=== PATIENT | female | born 1975 | race Caucasian/White ===

== ENCOUNTER 2018-12-18 05:28 | Inpatient (IN) | payer OTHER ==
[~2018-12-18] VITALS: Ht 144.8 cm; Wt 90.0 kg
[~2018-12-18 05:28] MED LIST: DOCU-144 PO; FER325 PO
[2018-12-18 11:47] VITALS: Ht 144.8 cm; Wt 90.0 kg
[2018-12-18 11:55] VITALS: BP 126/58; PULSE 76; RESP 19
[2018-12-18 14:45] VITALS: BP 101/53; PULSE 72; RESP 18
[2018-12-18] MEDS ORDERED: ONDANSETRON 4 MG INJ IV PRN (15:00)
[2018-12-18] MEDS ORDERED: ACETAMINOPHEN 325 MG TAB PO PRN (15:00)
[2018-12-18] MEDS ORDERED: ZOLPIDEM 5 MG TAB PO PRN (15:00)
[2018-12-18] MEDS ORDERED: NACL 0.9% 3 ML SYG IV SCH (15:00)
--- NOTE | 2018-12-18 15:08 | QN ---
Documentation Comment PT SEEN AND ADAM ENGLISH MD Dec 18, 2018 15:08
--- NOTE | 2018-12-18 15:19 | QN ---
Documentation Comment PT SEEN AND EXAMINED ADAM BULLARD MD Dec 18, 2018 15:19
[2018-12-18] MEDS ORDERED: CLOTRIMAZOLE 1% 45 GM VAG CR VAG ONE (16:00)
[2018-12-18] MEDS: CEFTRIAXONE 1 GM/50 ML (PMX) 50 ML IVPB SCH (16:05)
[2018-12-18] MEDS: SOD CHLORIDE 0.9% 1,000 ML IV SCH (16:06)
[2018-12-18 20:00] VITALS: BP 122/60; PULSE 81; RESP 18
--- NOTE | 2018-12-18 20:41 | HP ---
DATE OF ADMISSION: 12/18/2018 REASON FOR ADMISSION: Transferred from [facility] secondary to anemia and UTI. HISTORY OF PRESENT ILLNESS: This is a 43-year-old female with a past medical history of 2 months of right flank pain and dysuria. She was initially seen in an outside clinic on 12/13 and she was noted to have microcytic anemia, hemoglobin of 6.4. Additionally, diagnosed with pyelonephritis. Patient was prescribed Bactrim and told to follow up at [facility] for anemia, stated for the last 2 months she hawley s had right flank pain, suprapubic pain and dysuria. Denies hematuria. Last menstrual period was 1 month ago, heavy, which is her normal. Since starting Bactrim she has reported somewhat feeling impr ani. She is also having some dyspnea, both at rest and exertion, unable to walk one flight of stair s. Denied any chest pain or chest tightness, palpitations, presyncope. Patient denied any hematemes is, any melena, any bright red blood per rectum. 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 Currently, the patient also states that she is having bilateral flank pain. When she arrived to the [facility] on 12/17 had a temperature 37.4, heart rate 99, blood pressure 117/59. Neela ent had hemoglobin of 6.6. Patient was given 2 units of blood. The patient had a bedside ultrasound , showed no evidence of hydronephrosis or renal stones, and chest x-ray was negative for acute cardio pulmonary process, and patient was continued on Bactrim and is transferred due to insurance reasons. PAST MEDICAL HISTORY: None. ALLERGIES: NONE. PAST SURGICAL HISTORY: . The patient also had left knee surgery. SOCIAL HISTORY: Denies any history of smoking, alcohol or any drug use. MEDICATIONS TAKING AT HOME: 1. Bactrim. 2. Flexeril. FAMILY HISTORY: Noncontributory. REVIEW OF SYSTEMS: The patient complained of bilateral flank pain on and off intermittently for the past 1 month, suprapubic pain, sometimes dysuria, sometimes a vaginal discharge. She used to have so me exertional shortness of breath. Denies any chest pain, any abdominal pain. Denies any hematuria. Denies any hematemesis, any melena. The patient has been having heavy periods and was told that sh moira had fibroids. PHYSICAL EXAMINATION: VITAL SIGNS: Currently blood pressure is 126/58, afebrile, heart rate 76, respirations 19, saturatin g 97%. GENERAL: The patient is awake, alert, oriented, does not appear to be in any acute distress. HEENT: Pupils equal, round, reactive to light. NECK: Supple, no JVD. HEART: Regular rate and rhythm. LUNGS: Clear to auscultate bilaterally. ABDOMEN: Soft, nontender, nondistended, some suprapubic tenderness present. The patient has right C VA tenderness. EXTREMITIES: No clubbing, cyanosis, or edema. The patient has a left knee surgery scar. DIAGNOSTIC DATA: From the other hospital shows BNP of less than 10. test was negative. L actate of 1.3, lipase of 31. Iron low, 15, TIBC 503. Albumin 3.4, AST 49, ALT 119. UA had showed s mall leukocytes, 4 WBCs. White count was 15, hemoglobin was 6.6. ASSESSMENT AND PLAN: This is a 43-year-old female, presented with: 1. Severe anemia. Could be secondary to menstrual bleeding. The patient has history of fibroids. Patient denies any hematuria, any hematemesis and melena. 2. Bilateral flank pain, more on the right. Need to rule out pyelonephritis versus kidney stone. 3. History of urinary tract infection. 4. Obesity. 5. Dyspnea, likely secondary to anemia. PLAN: At this period of time, the patient is admitted to med/surg. The patient has already received 2 units of blood. We will repeat the CBC. We will check for iron panel, B12, folic acid, reticuloc yte count. We will also get a CT of the abdomen and pelvis, pain control, UA, urine culture. The pa tient will be on IV antibiotics. Rest of the treatment will depend on the patient's hospitalization course. Dictated By: ADAM LARA/PHILIPPE Conf#: [id number] DID#: [id number]
[2018-12-19 02:00] VITALS: BP 116/84; PULSE 71; RESP 17
[2018-12-19] MEDS: SOD CHLORIDE 0.9% 1,000 ML IV SCH (06:30)
[2018-12-19 08:22] VITALS: BP 114/56; PULSE 68; RESP 14
[2018-12-19 13:28] VITALS: BP 123/61; PULSE 74; RESP 14
--- NOTE | 2018-12-19 13:48 | CONS ---
Assessment/Plan Assessment/Plan Hospital Course (Demo Recall) 43-year-old female has been complaining of dysuria for the past 2 months and she went to [facility] found to be severely anemic was given blood transfusions and she was transferred to [facility] because of her insurance. The patient underwent a CT scan of the abdomen and pelvis and that showed: 1. Nonobstructive bilateral nephrolithiasis without hydronephrosis or identifiable ureterolithiasis. 2. Fibroid uterus containing some endometrial fluid. This can be better evaluated with pelvic ultrasound if clinically warranted. 3. Cholelithiasis versus sludge in the mildly distended gallbladder without lilo evidence of acute cholecystitis. This can be better evaluated with right upper quadrant ultrasound if clinically warranted. 4. Hepatosteatosis. 5. Mild left colonic diverticulosis without evidence of acute diverticulitis. The bowel is unobstructed without evidence of perforation or abscess, and the appendix appears normal. 6. Evidence of chronic granulomatous disease. Patient states that she does have dysuria, nocturia x1, there is no nausea or vomiting and no gross hematuria. During the day she voids every 2 hours and she has no urgency or urgency incontinence. The stones that she has in her kidneys are not obstructing and therefore would not be causing her pain. However whenever a stone comes down from her kidney into the ureter may be causing her the pain and she passes it and then the pain goes away and during that time she may have symptoms similar to urinary tract infection and was treated for supposedly UTI We will send urine for culture and sensitivity by straight cath and strain her urine for stones. Consultation Date/Type/Reason Admit Date/Time Dec 18, 2018 at 11:01 Date of Consultation: Dec 19, 2018 Type of Consult Urology Reason for Consultation Bilateral kidney stones, dysuria for the past 2 months. Requesting Provider: ADAM BULLARD MD Date/Time of Note DATE: 12/19/18 TIME: 13:33 Hx of Present Illness 43-year-old female has been complaining of dysuria for the past 2 months and she went to [facility] found to be severely anemic was given blood transfusions and she was transferred to [facility] because of her insurance. The patient underwent a CT scan of the abdomen and pelvis and that showed: 1. Nonobstructive bilateral nephrolithiasis without hydronephrosis or identifiable ureterolithiasis. 2. Fibroid uterus containing some endometrial fluid. This can be better evaluated with pelvic ultrasound if clinically warranted. 3. Cholelithiasis versus sludge in the mildly distended gallbladder without lilo evidence of acute cholecystitis. This can be better evaluated with right upper quadrant ultrasound if clinically warranted. 4. Hepatosteatosis. 5. Mild left colonic diverticulosis without evidence of acute diverticulitis. The bowel is unobstructed without evidence of perforation or abscess, and the appendix appears normal. 6. Evidence of chronic granulomatous disease. Patient states that she does have dysuria, nocturia x1, there is no nausea or vomiting and no gross hematuria. During the day she voids every 2 hours and she has no urgency or urgency incontinence. Constitutional: no complaints Eyes: no complaints ENT: no complaints Respiratory: no complaints; No shortness of breath, No wheezing Cardiovascular: no complaints Gastrointestinal: No nausea, No vomiting Genitourinary: dysuria, other (Vaginal itching, last menstrual periods was November 20, 2018) Musculoskeletal: no complaints Skin: no complaints Neurologic: no complaints Endocrine: no complaints Past Medical History Medical History: high cholesterol Medications Current Medications IV Flush (NS 3 ml) 3 ml PER PROTOCOL IV ; Start 12/18/18 at 15:00 Ondansetron HCl (Zofran Inj) 4 mg Q6H PRN IV NAUSEA/VOMITING; Start 12/18/18 at 15:00 Acetaminophen (Tylenol Tab) 650 mg Q6H PRN PO .PAIN 1-3 OR TEMP; Start 12/18/18 at 15:00 Zolpidem Tartrate (Ambien) 5 mg QHS PRN PO .INSOMNIA; Start 12/18/18 at 15:00 Ceftriaxone Sodium 50 ml @ 100 mls/hr Q24H IVPB Last administered on 12/18/18at 16:05; Admin Dose 100 MLS/HR; Start 12/18/18 at 15:30 Sodium Chloride 1,000 ml @ 70 mls/hr [id number] IV Last administered on 12/19/18at 06:30; Admin Dose 70 MLS/HR; Start 12/18/18 at 15:30 Metronidazole 100 ml @ 100 mls/hr Q8 IVPB ; Start 12/19/18 at 14:00 Allergies: Coded Allergies: No Known Allergies (Verified Allergy, Unknown, 12/18/18) Past Surgical History Past Surgical Hx: other ( x1 and fracture left leg) Social History Alcohol Use: none Smoking Status: Never smoker Drug Use: none Other Social History She is a 3 para 1, 2 miscarriages and 1 Exam/Review of Systems Exam Vitals Vital Signs Date Temp Pulse Resp B/P (MAP) Pulse Ox O2 O2 Flow FiO2 Time Delivery Rate 12/19/18 98.3 68 14 114/56 94 Room Air 08:22 (75) Intake and Output 12/18/18 12/18/18 12/19/18 1515:00 23:00 07:00 IntakeIntake Total 690 ml 1490 ml BalanceBalance 690 ml 1490 ml Constitutional: alert, oriented Head: normocephalic Eyes: nl conjunctiva ENMT: nl external ears & nose Neck: supple Respiratory: normal air movement; No wheezing Cardiovascular: regular rate and rhythm Gastrointestinal: soft Genitourinary - Female: other (Pelvic exam: No pain. She has whitish discharge); No CVA tenderness Musculoskeletal: nl extremities to inspection Extremities: No calf tenderness Neurological: nl mental status Results Result Diagram: 12/19/18 0507 12/19/18 0504 Results 24hrs Laboratory Tests Test 12/18/18 15:24 12/18/18 15:55 12/19/18 05:04 12/19/18 05:07 White Blood Count 13.4 H 13.2 H Red Blood Count 4.78 4.48 Hemoglobin 9.1 L 8.5 L Hematocrit 32.0 L 30.0 L Mean Corpuscular 66.9 L 67.0 L Volume Mean Corpuscular 19.0 L 19.0 L Hemoglobin Mean Corpuscular 28.4 L 28.3 L Hemoglobin Concen t Red Cell 25.1 H 26.0 H Distribution Width Platelet Count 366 339 Mean Platelet 9.9 9.9 Volume Immature 1.100 H 0.800 H Granulocytes % Neutrophils % 74.7 74.5 Lymphocytes % 15.9 14.7 L Monocytes % 6.7 7.8 Eosinophils % 1.0 1.7 Basophils % 0.6 0.5 Nucleated Red 0.4 H 0.2 H Blood Cells % Immature 0.150 H 0.110 H Granulocytes # Neutrophils # 10.0 H 9.8 H Lymphocytes # 2.1 1.9 Monocytes # 0.9 1.0 H Eosinophils # 0.1 0.2 Basophils # 0.1 0.1 Nucleated Red 0.1 H 0.0 Blood Cells # Urine Color YELLOW Urine Clarity SLIGHTLY CLOUDY A Urine pH 5.0 Urine Specific 1.013 [place] Urine Ketones TRACE A Urine Nitrite NEGATIVE Urine Bilirubin NEGATIVE Urine NEGATIVE Urobilinogen Urine Leukocyte 2+ H Esterase Urine Microscopic 12 H RBC Urine Microscopic 20 H WBC Urine Squamous MODERATE Epithelial Cells Urine Bacteria FEW A Urine Yeast FEW A (Budding) Urine Hemoglobin NEGATIVE Urine Glucose NEGATIVE Urine Total NEGATIVE Protein Urine NEGATIVE Test Sodium Level 138 Potassium Level 4.0 Chloride Level 106 Carbon Dioxide 24 Level Anion Gap 8 Blood Urea 10 Nitrogen Creatinine 0.75 Est Glomerular > 60 Filtrat Rate mL/min Glucose Level 95 Calcium Level 8.9 Total Bilirubin 0.5 Direct Bilirubin 0.00 Indirect 0.5 Bilirubin Aspartate Amino 59 H Transf (AST/SGOT) Alanine 110 H Aminotransferase (ALT/SGPT) Alkaline 100 Phosphatase Total Protein 7.4 Albumin 3.6 Globulin 3.80 H Albumin/Globulin 0.[address] scan of the abdomen and pelvis: 1. Nonobstructive bilateral nephrolithiasis without hydronephrosis or identifiable ureterolithiasis. 2. Fibroid uterus containing some endometrial fluid. This can be better evaluated with pelvic ultrasound if clinically warranted. 3. Cholelithiasis versus sludge in the mildly distended gallbladder without lilo evidence of acute cholecystitis. This can be better evaluated with right upper quadrant ultrasound if clinically warranted. 4. Hepatosteatosis. 5. Mild left colonic diverticulosis without evidence of acute diverticulitis. The bowel is unobstructed without evidence of perforation or abscess, and the appendix appears normal. 6. Evidence of chronic granulomatous disease. Medications Medication Current Medications IV Flush (NS 3 ml) 3 ml PER PROTOCOL IV ; Start 12/18/18 at 15:00 Ondansetron HCl (Zofran Inj) 4 mg Q6H PRN IV NAUSEA/VOMITING; Start 12/18/18 at 15:00 Acetaminophen (Tylenol Tab) 650 mg Q6H PRN PO .PAIN 1-3 OR TEMP; Start 12/18/18 at 15:00 Zolpidem Tartrate (Ambien) 5 mg QHS PRN PO .INSOMNIA; Start 12/18/18 at 15:00 Ceftriaxone Sodium 50 ml @ 100 mls/hr Q24H IVPB Last administered on 12/18/18at 16:05; Admin Dose 100 MLS/HR; Start 12/18/18 at 15:30 Sodium Chloride 1,000 ml @ 70 mls/hr [id number] IV Last administered on 12/19/18at 06:30; Admin Dose 70 MLS/HR; Start 12/18/18 at 15:30 Metronidazole 100 ml @ 100 mls/hr Q8 IVPB ; Start 12/19/18 at 14:00 ROCKY BALLARD MD Dec 19, 2018 13:43
--- NOTE | 2018-12-19 14:04 | PN ---
Date/Time of Note Date/Time of Note DATE: 12/19/18 TIME: 14:04 Assessment/Plan VTE Prophylaxis Risk score (from Ns)>0 risk: 1 SCD applied (from Ns): No SCD contraindicated: low risk/ambulating Pharmacological prophylaxis: NA/contraindicated Pharm contraindication: low risk/ambulating Lines/Catheters [facility] Peripheral IV Urinary Cath still in place: No Assessment/Plan Assessment/Plan ASSESSMENT AND PLAN: This is a 43-year-old female, presented with: 1. Severe anemia. Could be secondary to menstrual bleeding. The patient has history of fibroids. Patient denies any hematuria, any hematemesis and melena. 2. Bilateral flank pain, more on the right. Need to rule out pyelonephritis versus kidney stone. now hs 6mm stones on ct scan 3. History of urinary tract infection. 4. Obesity. 5. Dyspnea, likely secondary to anemia. 6 Possible gall stones plan - Abd US to r/o chloecystitis - Dr Olson consult - iv rocephin/add flagyll for possible cholecystitis - Fe panel - pain control Result Diagram: 12/19/18 0507 12/19/18 0504 Results 24hrs Laboratory Tests Test 12/18/18 15:24 12/18/18 15:55 12/19/18 05:04 12/19/18 05:07 White Blood Count 13.4 H 13.2 H Red Blood Count 4.78 4.48 Hemoglobin 9.1 L 8.5 L Hematocrit 32.0 L 30.0 L Mean Corpuscular 66.9 L 67.0 L Volume Mean Corpuscular 19.0 L 19.0 L Hemoglobin Mean Corpuscular 28.4 L 28.3 L Hemoglobin Concen t Red Cell 25.1 H 26.0 H Distribution Width Platelet Count 366 339 Mean Platelet 9.9 9.9 Volume Immature 1.100 H 0.800 H Granulocytes % Neutrophils % 74.7 74.5 Lymphocytes % 15.9 14.7 L Monocytes % 6.7 7.8 Eosinophils % 1.0 1.7 Basophils % 0.6 0.5 Nucleated Red 0.4 H 0.2 H Blood Cells % Immature 0.150 H 0.110 H Granulocytes # Neutrophils # 10.0 H 9.8 H Lymphocytes # 2.1 1.9 Monocytes # 0.9 1.0 H Eosinophils # 0.1 0.2 Basophils # 0.1 0.1 Nucleated Red 0.1 H 0.0 Blood Cells # Urine Color YELLOW Urine Clarity SLIGHTLY CLOUDY A Urine pH 5.0 Urine Specific 1.013 [place] Urine Ketones TRACE A Urine Nitrite NEGATIVE Urine Bilirubin NEGATIVE Urine NEGATIVE Urobilinogen Urine Leukocyte 2+ H Esterase Urine Microscopic 12 H RBC Urine Microscopic 20 H WBC Urine Squamous MODERATE Epithelial Cells Urine Bacteria FEW A Urine Yeast FEW A (Budding) Urine Hemoglobin NEGATIVE Urine Glucose NEGATIVE Urine Total NEGATIVE Protein Urine NEGATIVE Test Sodium Level 138 Potassium Level 4.0 Chloride Level 106 Carbon Dioxide 24 Level Anion Gap 8 Blood Urea 10 Nitrogen Creatinine 0.75 Est Glomerular > 60 Filtrat Rate mL/min Glucose Level 95 Calcium Level 8.9 Total Bilirubin 0.5 Direct Bilirubin 0.00 Indirect 0.5 Bilirubin Aspartate Amino 59 H Transf (AST/SGOT) Alanine 110 H Aminotransferase (ALT/SGPT) Alkaline 100 Phosphatase Total Protein 7.4 Albumin 3.6 Globulin 3.80 H Albumin/Globulin 0.94 Ratio Subjective 24 Hr Interval Summary Free Text/Dictation U/S multiple stones ? cholecystitis Exam/Review of Systems Exam Vitals Vital Signs Date Temp Pulse Resp B/P (MAP) Pulse Ox O2 O2 Flow FiO2 Time Delivery Rate 12/19/18 97.7 74 14 123/61 98 Room Air 13:28 (81) Intake and Output 12/18/18 12/18/18 12/19/18 1515:00 23:00 07:00 IntakeIntake Total 690 ml 1490 ml BalanceBalance 690 ml 1490 ml Exam GENERAL: The patient is awake, alert, oriented, does not appear to be in any ac mariela distress. HEENT: Pupils equal, round, reactive to light. NECK: Supple, no JVD. HEART: Regular rate and rhythm. LUNGS: Clear to auscultate bilaterally. ABDOMEN: Soft, nontender, nondistended, some suprapubic tenderness present. The patient has right CVA tenderness. EXTREMITIES: No clubbing, cyanosis, or edema. The patient has a left knee surgery scar Results Results 24hrs Laboratory Tests Test 12/18/18 15:24 12/18/18 15:55 12/19/18 05:04 12/19/18 05:07 White Blood Count 13.4 H 13.2 H Red Blood Count 4.78 4.48 Hemoglobin 9.1 L 8.5 L Hematocrit 32.0 L 30.0 L Mean Corpuscular 66.9 L 67.0 L Volume Mean Corpuscular 19.0 L 19.0 L Hemoglobin Mean Corpuscular 28.4 L 28.3 L Hemoglobin Concen t Red Cell 25.1 H 26.0 H Distribution Width Platelet Count 366 339 Mean Platelet 9.9 9.9 Volume Immature 1.100 H 0.800 H Granulocytes % Neutrophils % 74.7 74.5 Lymphocytes % 15.9 14.7 L Monocytes % 6.7 7.8 Eosinophils % 1.0 1.7 Basophils % 0.6 0.5 Nucleated Red 0.4 H 0.2 H Blood Cells % Immature 0.150 H 0.110 H Granulocytes # Neutrophils # 10.0 H 9.8 H Lymphocytes # 2.1 1.9 Monocytes # 0.9 1.0 H Eosinophils # 0.1 0.2 Basophils # 0.1 0.1 Nucleated Red 0.1 H 0.0 Blood Cells # Urine Color YELLOW Urine Clarity SLIGHTLY CLOUDY A Urine pH 5.0 Urine Specific 1.013 [place] Urine Ketones TRACE A Urine Nitrite NEGATIVE Urine Bilirubin NEGATIVE Urine NEGATIVE Urobilinogen Urine Leukocyte 2+ H Esterase Urine Microscopic 12 H RBC Urine Microscopic 20 H WBC Urine Squamous MODERATE Epithelial Cells Urine Bacteria FEW A Urine Yeast FEW A (Budding) Urine Hemoglobin NEGATIVE Urine Glucose NEGATIVE Urine Total NEGATIVE Protein Urine NEGATIVE Test Sodium Level 138 Potassium Level 4.0 Chloride Level 106 Carbon Dioxide 24 Level Anion Gap 8 Blood Urea 10 Nitrogen Creatinine 0.75 Est Glomerular > 60 Filtrat Rate mL/min Glucose Level 95 Calcium Level 8.9 Total Bilirubin 0.5 Direct Bilirubin 0.00 Indirect 0.5 Bilirubin Aspartate Amino 59 H Transf (AST/SGOT) Alanine 110 H Aminotransferase (ALT/SGPT) Alkaline 100 Phosphatase Total Protein 7.4 Albumin 3.6 Globulin 3.80 H Albumin/Globulin 0.94 Ratio Medications Medication Current Medications IV Flush (NS 3 ml) 3 ml PER PROTOCOL IV ; Start 12/18/18 at 15:00 Ondansetron HCl (Zofran Inj) 4 mg Q6H PRN IV NAUSEA/VOMITING; Start 12/18/18 at 15:00 Acetaminophen (Tylenol Tab) 650 mg Q6H PRN PO .PAIN 1-3 OR TEMP; Start 12/18/18 at 15:00 Zolpidem Tartrate (Ambien) 5 mg QHS PRN PO .INSOMNIA; Start 12/18/18 at 15:00 Ceftriaxone Sodium 50 ml @ 100 mls/hr Q24H IVPB Last administered on 12/18/18at 16:05; Admin Dose 100 MLS/HR; Start 12/18/18 at 15:30 Sodium Chloride 1,000 ml @ 70 mls/hr [id number] IV Last administered on 12/19/18at 06:30; Admin Dose 70 MLS/HR; Start 12/18/18 at 15:30 Metronidazole 100 ml @ 100 mls/hr Q8 IVPB ; Start 12/19/18 at 14:00 ADAM BULLARD MD Dec 19, 2018 14:04
[2018-12-19] MEDS: metroNIDAZOLE 500 MG/NS (PMX) 100 ML IVPB SCH ×2 (14:24→21:52)
[2018-12-19] MEDS: CEFTRIAXONE 1 GM/50 ML (PMX) 50 ML IVPB SCH (15:54)
[2018-12-19] MEDS ORDERED: POLYETHYLENE GLYCOL 17 GM PACKET PO PRN (19:30)
[2018-12-19] MEDS ORDERED: DOCUSATE SODIUM 100 MG CAP PO PRN (19:30)
[2018-12-19 20:00] VITALS: BP 116/53; PULSE 82; RESP 18
[2018-12-20 02:00] VITALS: BP 97/49; PULSE 85; RESP 18
[2018-12-20] MEDS: SOD CHLORIDE 0.9% 1,000 ML IV SCH ×3 (02:33→21:06)
[2018-12-20] MEDS: metroNIDAZOLE 500 MG/NS (PMX) 100 ML IVPB SCH ×2 (05:21→14:31)
[2018-12-20 08:00] VITALS: BP 99/53; PULSE 71; RESP 16
[2018-12-20] MEDS ORDERED: CLOTRIMAZOLE 1% 45 GM VAG CR VAG ONE (13:30)
[2018-12-20 14:00] VITALS: BP 107/55; PULSE 72; RESP 16
--- NOTE | 2018-12-20 14:40 | PN ---
Date/Time of Note Date/Time of Note DATE: 12/20/18 TIME: 14:38 Assessment/Plan VTE Prophylaxis Risk score (from Ns)>0 risk: 2 SCD applied (from [facility] [place] SCD contraindicated: low risk/ambulating Pharmacological prophylaxis: NA/contraindicated Pharm contraindication: low risk/ambulating Lines/Catheters IV Catheter Type (from [facility]): Peripheral IV Urinary Cath still in place: No Assessment/Plan Assessment/Plan ASSESSMENT AND PLAN: This is a 43-year-old female, presented with: 1. Severe anemia. Could be secondary to menstrual bleeding. The patient has history of fibroids. Patient denies any hematuria, any hematemesis and melena. The microcytic 2. Bilateral flank pain, more on the right. Need to rule out pyelonephritis versus kidney stone. now hs 6mm stones on ct scan 3. History of urinary tract infection. 4. Obesity. 5. Dyspnea, likely secondary to anemia. 6 Possible gall stones plan -Check for iron panel B12 folic acid LDH haptoglobin -IV iron -Clotrim oxazole + urine culture positive for Anh -Treated with Rocephin. REBEKAH Flagyl - pain control Result Diagram: 12/20/18 0551 12/20/18 0552 Results 24hrs Laboratory Tests Test 12/19/18 17:15 12/20/18 05:51 12/20/18 05:52 Urine Color YELLOW Urine Clarity CLEAR Urine pH 5.0 Urine Specific [place] 1.014 Urine Ketones NEGATIVE Urine Nitrite NEGATIVE Urine Bilirubin NEGATIVE Urine Urobilinogen 1+ H Urine Leukocyte Esterase NEGATIVE Urine Hemoglobin NEGATIVE Urine Glucose NEGATIVE Urine Total Protein NEGATIVE White Blood Count 10.9 H Red Blood Count 4.19 L Hemoglobin 8.1 L Hematocrit 29.1 L Mean Corpuscular Volume 69.5 L Mean Corpuscular Hemoglobin 19.3 L Mean Corpuscular Hemoglobin Concent 27.8 L Red Cell Distribution Width 27.2 H Platelet Count 328 Mean Platelet Volume 10.3 Immature Granulocytes % 0.700 H Neutrophils % 73.2 Lymphocytes % 17.6 Monocytes % 6.8 Eosinophils % 1.2 Basophils % 0.5 Nucleated Red Blood Cells % 0.0 Immature Granulocytes # 0.080 H Neutrophils # 8.0 H Lymphocytes # 1.9 Monocytes # 0.7 Eosinophils # 0.1 Basophils # 0.1 Nucleated Red Blood Cells # 0.0 Absolute Reticulocyte Count 0.075 Percent Reticulocyte Count 1.8 H Iron Level 24 L Total Iron Binding Capacity 400 Percent Iron Saturation 6 L Lactate Dehydrogenase 325 Vitamin B12 Level Pending Folate Pending Sodium Level 139 Potassium Level 4.2 Chloride Level 109 Carbon Dioxide Level 23 Anion Gap 7 Blood Urea Nitrogen 12 Creatinine 0.72 Est Glomerular Filtrat Rate mL/min > 60 Glucose Level 106 Calcium Level 8.8 Subjective 24 Hr Interval Summary Free Text/Dictation Overall feels better however still anemic which is microcytic Vagina itching Exam/Review of Systems Exam Vitals Vital Signs Date Temp Pulse Resp B/P (MAP) Pulse Ox O2 O2 Flow FiO2 Time Delivery Rate 12/20/18 98.0 71 16 99/53 (68) 100 08:00 12/19/18 Room Air 13:28 Intake and Output 12/19/18 12/19/18 12/20/18 1515:00 23:00 07:00 IntakeIntake Total 100 ml 150 ml 1580 ml OutputOutput Total 550 ml BalanceBalance 100 ml 150 ml 1030 ml Exam GENERAL: The patient is awake, alert, oriented, does not appear to be in any acute distress. HEENT: Pupils equal, round, reactive to light. NECK: Supple, no JVD. HEART: Regular rate and rhythm. LUNGS: Clear to auscultate bilaterally. ABDOMEN: Soft, nontender, nondistended, some suprapubic tenderness present. The patient has right CVA tenderness.improved EXTREMITIES: No clubbing, cyanosis, or edema. The patient has a left knee surgery sca Results Results 24hrs Laboratory Tests Test 12/19/18 17:15 12/20/18 05:51 12/20/18 05:52 Urine Color YELLOW Urine Clarity CLEAR Urine pH 5.0 Urine Specific [place] 1.014 Urine Ketones NEGATIVE Urine Nitrite NEGATIVE Urine Bilirubin NEGATIVE Urine Urobilinogen 1+ H Urine Leukocyte Esterase NEGATIVE Urine Hemoglobin NEGATIVE Urine Glucose NEGATIVE Urine Total Protein NEGATIVE White Blood Count 10.9 H Red Blood Count 4.19 L Hemoglobin 8.1 L Hematocrit 29.1 L Mean Corpuscular Volume 69.5 L Mean Corpuscular Hemoglobin 19.3 L Mean Corpuscular Hemoglobin Concent 27.8 L Red Cell Distribution Width 27.2 H Platelet Count 328 Mean Platelet Volume 10.3 Immature Granulocytes % 0.700 H Neutrophils % 73.2 Lymphocytes % 17.6 Monocytes % 6.8 Eosinophils % 1.2 Basophils % 0.5 Nucleated Red Blood Cells % 0.0 Immature Granulocytes # 0.080 H Neutrophils # 8.0 H Lymphocytes # 1.9 Monocytes # 0.7 Eosinophils # 0.1 Basophils # 0.1 Nucleated Red Blood Cells # 0.0 Absolute Reticulocyte Count 0.075 Percent Reticulocyte Count 1.8 H Iron Level 24 L Total Iron Binding Capacity 400 Percent Iron Saturation 6 L Lactate Dehydrogenase 325 Vitamin B12 Level Pending Folate Pending Sodium Level 139 Potassium Level 4.2 Chloride Level 109 Carbon Dioxide Level 23 Anion Gap 7 Blood Urea Nitrogen 12 Creatinine 0.72 Est Glomerular Filtrat Rate mL/min > 60 Glucose Level 106 Calcium Level 8.8 Medications Medication Current Medications IV Flush (NS 3 ml) 3 ml PER PROTOCOL IV ; Start 12/18/18 at 15:00 Ondansetron HCl (Zofran Inj) 4 mg Q6H PRN IV NAUSEA/VOMITING; Start 12/18/18 at 15:00 Acetaminophen (Tylenol Tab) 650 mg Q6H PRN PO .PAIN 1-3 OR TEMP; Start 12/18/18 at 15:00 Zolpidem Tartrate (Ambien) 5 mg QHS PRN PO .INSOMNIA; Start 12/18/18 at 15:00 Ceftriaxone Sodium 50 ml @ 100 mls/hr Q24H IVPB Last administered on 12/19/18at 15:54; Admin Dose 100 MLS/HR; Start 12/18/18 at 15:30 Sodium Chloride 1,000 ml @ 70 mls/hr [id number] IV Last administered on 12/20/18at 02:33; Admin Dose 70 MLS/HR; Start 12/18/18 at 15:30 Metronidazole 100 ml @ 100 mls/hr Q8 IVPB Last administered on 12/20/18at 14:31; Admin Dose 100 MLS/HR; Start 12/19/18 at 14:00 Docusate Sodium (Colace) 100 mg BID PRN PO CONSTIPATION; Start 12/19/18 at 19:30 Polyethylene Glycol (Miralax) 17 gm DAILY PRN PO CONSTIPATION; Start 12/19/18 at 19:30 Ferric Sodium Gluconate Complex 125 mg/Sodium Chloride 110 ml @ 110 mls/hr DAILY@1300 IVPB ; Start 12/21/18 at 13:00; Stop 12/25/18 at 13:59 ADAM BULLARD MD Dec 20, 2018 14:40
[2018-12-20] MEDS: CEFTRIAXONE 1 GM/50 ML (PMX) 50 ML IVPB SCH (15:32)
--- NOTE | 2018-12-20 17:14 | CONS ---
Assessment/Plan Assessment/Plan Hospital Course (Demo Recall) 1. Severe anemia. microcytic Could be secondary to menstrual bleeding. The patient has history of fibroids. Patient denies any hematuria, any hematemesis and melena. proceed with w-up , including GI eval AND SICKLE CELL SCREEN 2. Bilateral flank pain, more on the right. Need to rule out pyelonephritis versus kidney stone. now hs 6mm stones on ct scan 3. History of urinary tract infection. 4. Obesity. 5. Dyspnea, likely secondary to anemia. 6 Possible gall stones Consultation Date/Type/Reason Admit Date/Time Dec 18, 2018 at 11:01 Date/Time of Note DATE: 12/20/18 TIME: 17:13 Past Medical History Medical History: high cholesterol Medications Current Medications IV Flush (NS 3 ml) 3 ml PER PROTOCOL IV ; Start 12/18/18 at 15:00 Ondansetron HCl (Zofran Inj) 4 mg Q6H PRN IV NAUSEA/VOMITING; Start 12/18/18 at 15:00 Acetaminophen (Tylenol Tab) 650 mg Q6H PRN PO .PAIN 1-3 OR TEMP; Start 12/18/18 at 15:00 Zolpidem Tartrate (Ambien) 5 mg QHS PRN PO .INSOMNIA; Start 12/18/18 at 15:00 Ceftriaxone Sodium 50 ml @ 100 mls/hr Q24H IVPB Last administered on 12/20/18at 15:32; Admin Dose 100 MLS/HR; Start 12/18/18 at 15:30 Sodium Chloride 1,000 ml @ 70 mls/hr [id number] IV Last administered on 12/20/18at 02:33; Admin Dose 70 MLS/HR; Start 12/18/18 at 15:30 Docusate Sodium (Colace) 100 mg BID PRN PO CONSTIPATION; Start 12/19/18 at 19:30 Polyethylene Glycol (Miralax) 17 gm DAILY PRN PO CONSTIPATION; Start 12/19/18 at 19:30 Ferric Sodium Gluconate Complex 125 mg/Sodium Chloride 110 ml @ 110 mls/hr DAILY@1300 IVPB ; Start 12/21/18 at 13:00; Stop 12/25/18 at 13:59 Allergies: Coded Allergies: No Known Allergies (Verified Allergy, Unknown, 12/18/18) Past Surgical History Past Surgical Hx: other ( x1 and fracture left leg) Social History Alcohol Use: none Smoking Status: Never smoker Drug Use: none Exam/Review of Systems Exam Vitals Vital Signs Date Temp Pulse Resp B/P (MAP) Pulse Ox O2 O2 Flow FiO2 Time Delivery Rate 12/20/18 98.9 72 16 107/55 99 14:00 (72) 12/19/18 Room Air 13:28 Intake and Output 12/19/18 12/19/18 12/20/18 1515:00 23:00 07:00 IntakeIntake Total 100 ml 150 ml 1580 ml OutputOutput Total 550 ml BalanceBalance 100 ml 150 ml 1030 ml Results Result Diagram: 12/20/18 0551 12/20/18 0552 Results 24hrs Laboratory Tests Test 12/19/18 17:15 12/20/18 05:51 12/20/18 05:52 Urine Color YELLOW Urine Clarity CLEAR Urine pH 5.0 Urine Specific [place] 1.014 Urine Ketones NEGATIVE Urine Nitrite NEGATIVE Urine Bilirubin NEGATIVE Urine Urobilinogen 1+ H Urine Leukocyte Esterase NEGATIVE Urine Hemoglobin NEGATIVE Urine Glucose NEGATIVE Urine Total Protein NEGATIVE White Blood Count 10.9 H Red Blood Count 4.19 L Hemoglobin 8.1 L Hematocrit 29.1 L Mean Corpuscular Volume 69.5 L Mean Corpuscular Hemoglobin 19.3 L Mean Corpuscular Hemoglobin Concent 27.8 L Red Cell Distribution Width 27.2 H Platelet Count 328 Mean Platelet Volume 10.3 Immature Granulocytes % 0.700 H Neutrophils % 73.2 Lymphocytes % 17.6 Monocytes % 6.8 Eosinophils % 1.2 Basophils % 0.5 Nucleated Red Blood Cells % 0.0 Immature Granulocytes # 0.080 H Neutrophils # 8.0 H Lymphocytes # 1.9 Monocytes # 0.7 Eosinophils # 0.1 Basophils # 0.1 Nucleated Red Blood Cells # 0.0 Absolute Reticulocyte Count 0.075 Percent Reticulocyte Count 1.8 H Iron Level 24 L Total Iron Binding Capacity 400 Percent Iron Saturation 6 L Lactate Dehydrogenase 325 Vitamin B12 Level > 1000 H Folate 7.7 Sodium Level 139 Potassium Level 4.2 Chloride Level 109 Carbon Dioxide Level 23 Anion Gap 7 Blood Urea Nitrogen 12 Creatinine 0.72 Est Glomerular Filtrat Rate mL/min > 60 Glucose Level 106 Calcium Level 8.8 Medications Medication Current Medications IV Flush (NS 3 ml) 3 ml PER PROTOCOL IV ; Start 12/18/18 at 15:00 Ondansetron HCl (Zofran Inj) 4 mg Q6H PRN IV NAUSEA/VOMITING; Start 12/18/18 at 15:00 Acetaminophen (Tylenol Tab) 650 mg Q6H PRN PO .PAIN 1-3 OR TEMP; Start 12/18/18 at 15:00 Zolpidem Tartrate (Ambien) 5 mg QHS PRN PO .INSOMNIA; Start 12/18/18 at 15:00 Ceftriaxone Sodium 50 ml @ 100 mls/hr Q24H IVPB Last administered on 12/20/18at 15:32; Admin Dose 100 MLS/HR; Start 12/18/18 at 15:30 Sodium Chloride 1,000 ml @ 70 mls/hr [id number] IV Last administered on 12/20/18at 02:33; Admin Dose 70 MLS/HR; Start 12/18/18 at 15:30 Docusate Sodium (Colace) 100 mg BID PRN PO CONSTIPATION; Start 12/19/18 at 19:30 Polyethylene Glycol (Miralax) 17 gm DAILY PRN PO CONSTIPATION; Start 12/19/18 at 19:30 Ferric Sodium Gluconate Complex 125 mg/Sodium Chloride 110 ml @ 110 mls/hr DAILY@1300 IVPB ; Start 12/21/18 at 13:00; Stop 12/25/18 at 13:59 PITO COBURN MD Dec 20, 2018 17:14
--- NOTE | 2018-12-20 18:33 | CONS ---
Consult Date/Type/Reason Admit Date/Time Dec 20, 2018 at 14:37 Initial Consult Date 12/19/18 Type of Consultation: Urology Reason for Consultation Bilateral kidney stones and vaginal yeast infection Requesting Provider: ADAM BULLARD MD Date/Time of Note DATE: 12/20/18 TIME: 18:29 Subjective Patient complains of itching in the vagina. Objective Vitals Vital Signs Date Temp Pulse Resp B/P (MAP) Pulse Ox O2 O2 Flow FiO2 Time Delivery Rate 12/20/18 98.9 72 16 107/55 99 14:00 (72) 12/19/18 Room Air 13:28 Intake and Output 12/19/18 12/19/18 12/20/18 1515:00 23:00 07:00 IntakeIntake Total 100 ml 150 ml 1580 ml OutputOutput Total 550 ml BalanceBalance 100 ml 150 ml 1030 ml Exam Abdomen is soft. There is no flank tenderness. Results/Medications Result Diagram: 12/20/18 0551 12/20/18 0552 Results 24 hrs Laboratory Tests Test 12/20/18 05:51 12/20/18 05:52 12/20/18 17:34 White Blood Count 10.9 H Red Blood Count 4.19 L Hemoglobin 8.1 L Hematocrit 29.1 L Mean Corpuscular Volume 69.5 L Mean Corpuscular Hemoglobin 19.3 L Mean Corpuscular Hemoglobin Concent 27.8 L Red Cell Distribution Width 27.2 H Platelet Count 328 Mean Platelet Volume 10.3 Immature Granulocytes % 0.700 H Neutrophils % 73.2 Lymphocytes % 17.6 Monocytes % 6.8 Eosinophils % 1.2 Basophils % 0.5 Nucleated Red Blood Cells % 0.0 Immature Granulocytes # 0.080 H Neutrophils # 8.0 H Lymphocytes # 1.9 Monocytes # 0.7 Eosinophils # 0.1 Basophils # 0.1 Nucleated Red Blood Cells # 0.0 Absolute Reticulocyte Count 0.075 Percent Reticulocyte Count 1.8 H Iron Level 24 L Total Iron Binding Capacity 400 Percent Iron Saturation 6 L Lactate Dehydrogenase 325 332 Vitamin B12 Level > 1000 H Folate 7.7 Sodium Level 139 Potassium Level 4.2 Chloride Level 109 Carbon Dioxide Level 23 Anion Gap 7 Blood Urea Nitrogen 12 Creatinine 0.72 Est Glomerular Filtrat Rate mL/min > 60 Glucose Level 106 Calcium Level 8.8 Uric Acid 4.6 Ferritin Pending Carcinoembryonic Antigen Pending Thyroid Stimulating Hormone (TSH) Pending Medications Current Medications IV Flush (NS 3 ml) 3 ml PER PROTOCOL IV ; Start 12/18/18 at 15:00 Ondansetron HCl (Zofran Inj) 4 mg Q6H PRN IV NAUSEA/VOMITING; Start 12/18/18 at 15:00 Acetaminophen (Tylenol Tab) 650 mg Q6H PRN PO .PAIN 1-3 OR TEMP; Start 12/18/18 at 15:00 Zolpidem Tartrate (Ambien) 5 mg QHS PRN PO .INSOMNIA; Start 12/18/18 at 15:00 Ceftriaxone Sodium 50 ml @ 100 mls/hr Q24H IVPB Last administered on 12/20/18at 15:32; Admin Dose 100 MLS/HR; Start 12/18/18 at 15:30 Sodium Chloride 1,000 ml @ 70 mls/hr [id number] IV Last administered on 12/20/18at 02:33; Admin Dose 70 MLS/HR; Start 12/18/18 at 15:30 Docusate Sodium (Colace) 100 mg BID PRN PO CONSTIPATION; Start 12/19/18 at 19:30 Polyethylene Glycol (Miralax) 17 gm DAILY PRN PO CONSTIPATION; Start 12/19/18 at 19:30 Ferric Sodium Gluconate Complex 125 mg/Sodium Chloride 110 ml @ 110 mls/hr DAILY@1300 IVPB ; Start 12/21/18 at 13:00; Stop 12/25/18 at 13:59 Clotrimazole (Clotrim 1% Vaginal Cr) 1 applic HS VAG ; Start 12/20/18 at 21:00 Assessment/Plan Hospital Course (Demo Recall) 43-year-old female has been complaining of dysuria for the past 2 months and she went to [facility] found to be severely anemic was given blood transfusions and she was transferred to [facility] because of her insurance. The patient underwent a CT scan of the abdomen and pelvis and that showed: 1. Nonobstructive bilateral nephrolithiasis without hydronephrosis or identifiable ureterolithiasis. 2. Fibroid uterus containing some endometrial fluid. This can be better evaluated with pelvic ultrasound if clinically warranted. 3. Cholelithiasis versus sludge in the mildly distended gallbladder without lilo evidence of acute cholecystitis. This can be better evaluated with right upper quadrant ultrasound if clinically warranted. 4. Hepatosteatosis. 5. Mild left colonic diverticulosis without evidence of acute diverticulitis. The bowel is unobstructed without evidence of perforation or abscess, and the appendix appears normal. 6. Evidence of chronic granulomatous disease. Patient states that she does have dysuria, nocturia x1, there is no nausea or vomiting and no gross hematuria. During the day she voids every 2 hours and she has no urgency or urgency incontinence. Patient complains of vaginal itching. The urine culture obtained by clean-catch on admission grew Anh albicans. However urine culture done by doing the straight cath showed no growth. On the pelvic examination on admission she did have whitish discharge. And that most likely contaminated the urine collected by clean-catch. Since the patient does have vaginal itching I also ordered for her Lotrimin vaginal cream to be applied at that time. I did explain to her again that the stones in the kidney are not obstructing and not causing any pain. Should any 1 of them however goes down into the ureter then she may have pain with nausea and vomiting and if the stone causes her problems then we could always do ureteroscopy and laser lithotripsy and remove the stone. ROCKY BALLARD MD Dec 20, 2018 18:33
[2018-12-20 20:30] VITALS: BP 122/60; PULSE 81; RESP 18
[2018-12-20] MEDS ORDERED: CLOTRIMAZOLE 1% 45 GM VAG CR VAG SCH (21:00)
[2018-12-21 02:35] VITALS: BP 98/53; PULSE 69; RESP 18
[2018-12-21 08:14] VITALS: BP 98/51; PULSE 63; RESP 18
--- NOTE | 2018-12-21 08:25 | CONS ---
Consult Date/Type/Reason Admit Date/Time Dec 20, 2018 at 14:37 Initial Consult Date 12/19/18 Type of Consultation: Urology Reason for Consultation Bilateral kidney stones Requesting Provider: ADAM BULLARD MD Date/Time of Note DATE: 12/21/18 TIME: 08:22 Subjective Patient is feeling comfortable. She denies having any pain. There is no dysuria and no more vaginal itching. Objective Vitals Vital Signs Date Temp Pulse Resp B/P (MAP) Pulse Ox O2 O2 Flow FiO2 Time Delivery Rate 12/21/18 98.6 63 18 98/51 (67) 99 Room Air 08:14 Intake and Output 12/20/18 12/20/18 12/21/18 1515:00 23:00 07:00 IntakeIntake Total 2050 ml 1560 ml OutputOutput Total 400 ml 500 ml BalanceBalance -400 ml 2050 ml 1060 ml Exam The abdomen is soft and there is no flank tenderness Results/Medications Result Diagram: 12/21/18 0545 12/20/18 0552 Results 24 hrs Laboratory Tests Test 12/20/18 17:33 12/20/18 17:34 12/21/18 05:45 Sickle Cells NEGATIVE Erythrocyte Sedimentation Rate 40 H Haptoglobin Pending Uric Acid 4.6 Erythropoietin Pending Ferritin 11.8 Lactate Dehydrogenase 332 Total Protein (PEP) 6.6 Albumin (PEP) Pending [id number] Pending [id number] Pending Beta Globulins Pending Gamma Globulins Pending Protein Electrophoresis Interpret Pending Carcinoembryonic Antigen 1.7 25-Hydroxy Vitamin D Total Pending 25-Hydroxy Vitamin D2 Pending 25-Hydroxy Vitamin D3 Pending Thyroid Stimulating Hormone (TSH) 4.060 White Blood Count 10.0 Red Blood Count 4.28 Hemoglobin 8.2 L Hematocrit 30.0 L Mean Corpuscular Volume 70.1 L Mean Corpuscular Hemoglobin 19.2 L Mean Corpuscular Hemoglobin Concent 27.3 L Red Cell Distribution Width 27.9 H Platelet Count 313 Mean Platelet Volume 9.9 Immature Granulocytes % 0.600 H Neutrophils % 72.1 Lymphocytes % 17.3 Monocytes % 7.5 Eosinophils % 2.0 Basophils % 0.5 Nucleated Red Blood Cells % 0.0 Immature Granulocytes # 0.060 H Neutrophils # 7.2 Lymphocytes # 1.7 Monocytes # 0.8 Eosinophils # 0.2 Basophils # 0.1 Nucleated Red Blood Cells # 0.0 Medications Current Medications IV Flush (NS 3 ml) 3 ml PER PROTOCOL IV ; Start 12/18/18 at 15:00 Ondansetron HCl (Zofran Inj) 4 mg Q6H PRN IV NAUSEA/VOMITING; Start 12/18/18 at 15:00 Acetaminophen (Tylenol Tab) 650 mg Q6H PRN PO .PAIN 1-3 OR TEMP; Start 12/18/18 at 15:00 Zolpidem Tartrate (Ambien) 5 mg QHS PRN PO .INSOMNIA; Start 12/18/18 at 15:00 Ceftriaxone Sodium 50 ml @ 100 mls/hr Q24H IVPB Last administered on 12/20/18at 15:32; Admin Dose 100 MLS/HR; Start 12/18/18 at 15:30 Sodium Chloride 1,000 ml @ 70 mls/hr [id number] IV Last administered on 12/20/18at 21:06; Admin Dose 70 MLS/HR; Start 12/18/18 at 15:30 Docusate Sodium (Colace) 100 mg BID PRN PO CONSTIPATION; Start 12/19/18 at 19:30 Polyethylene Glycol (Miralax) 17 gm DAILY PRN PO CONSTIPATION; Start 12/19/18 at 19:30 Ferric Sodium Gluconate Complex 125 mg/Sodium Chloride 110 ml @ 110 mls/hr DAILY@1300 IVPB ; Start 12/21/18 at 13:00; Stop 12/25/18 at 13:59 Clotrimazole (Clotrim 1% Vaginal Cr) 1 applic HS VAG Last administered on 12/20/18at 20:47; Admin Dose 1 APPLIC; Start 12/20/18 at 21:00 Assessment/Plan Hospital Course (Demo Recall) 43-year-old female has been complaining of dysuria for the past 2 months and she went to [facility] found to be severely anemic was given blood transfusions and she was transferred to [facility] because of her insurance. The patient underwent a CT scan of the abdomen and pelvis and that showed: 1. Nonobstructive bilateral nephrolithiasis without hydronephrosis or identifiable ureterolithiasis. 2. Fibroid uterus containing some endometrial fluid. This can be better evaluated with pelvic ultrasound if clinically warranted. 3. Cholelithiasis versus sludge in the mildly distended gallbladder without lilo evidence of acute cholecystitis. This can be better evaluated with right upper quadrant ultrasound if clinically warranted. 4. Hepatosteatosis. 5. Mild left colonic diverticulosis without evidence of acute diverticulitis. The bowel is unobstructed without evidence of perforation or abscess, and the appendix appears normal. 6. Evidence of chronic granulomatous disease. The patient is feeling better now. She has no dysuria and no flank pain or abdominal pain. The vaginal itching has subsided. She did get Lotrimin vaginal cream last night for the Anh vaginal infection. Urologically she is okay and she should follow-up as an outpatient for her kidney stones. ROCYK BALLARD MD Dec 21, 2018 08:25
--- NOTE | 2018-12-21 09:34 | CONS ---
Consultation Date/Type/Reason Admit Date/Time Dec 20, 2018 at 14:37 Initial Consult Date 12/19/18 Requesting Provider: ADAM BULLARD MD Date/Time of Note DATE: 12/21/18 TIME: 09:34 Exam/Review of Systems Exam Vitals Vital Signs Date Temp Pulse Resp B/P (MAP) Pulse Ox O2 O2 Flow FiO2 Time Delivery Rate 12/21/18 98.6 63 18 98/51 (67) 99 Room Air 08:14 Intake and Output 12/20/18 12/20/18 12/21/18 1515:00 23:00 07:00 IntakeIntake Total 2050 ml 1560 ml OutputOutput Total 400 ml 500 ml BalanceBalance -400 ml 2050 ml 1060 ml Results Result Diagram: 12/21/18 0545 12/20/18 0552 Results 24hrs Laboratory Tests Test 12/20/18 17:33 12/20/18 17:34 12/21/18 05:45 Sickle Cells NEGATIVE Erythrocyte Sedimentation Rate 40 H Haptoglobin 188 Uric Acid 4.6 Erythropoietin Pending Ferritin 11.8 Lactate Dehydrogenase 332 Total Protein (PEP) 6.6 Albumin (PEP) Pending [id number] Pending [id number] Pending Beta Globulins Pending Gamma Globulins Pending Protein Electrophoresis Interpret Pending Carcinoembryonic Antigen 1.7 25-Hydroxy Vitamin D Total Pending 25-Hydroxy Vitamin D2 Pending 25-Hydroxy Vitamin D3 Pending Thyroid Stimulating Hormone (TSH) 4.060 White Blood Count 10.0 Red Blood Count 4.28 Hemoglobin 8.2 L Hematocrit 30.0 L Mean Corpuscular Volume 70.1 L Mean Corpuscular Hemoglobin 19.2 L Mean Corpuscular Hemoglobin Concent 27.3 L Red Cell Distribution Width 27.9 H Platelet Count 313 Mean Platelet Volume 9.9 Immature Granulocytes % 0.600 H Neutrophils % 72.1 Lymphocytes % 17.3 Monocytes % 7.5 Eosinophils % 2.0 Basophils % 0.5 Nucleated Red Blood Cells % 0.0 Immature Granulocytes # 0.060 H Neutrophils # 7.2 Lymphocytes # 1.7 Monocytes # 0.8 Eosinophils # 0.2 Basophils # 0.1 Nucleated Red Blood Cells # 0.0 Medications Medication Current Medications IV Flush (NS 3 ml) 3 ml PER PROTOCOL IV ; Start 12/18/18 at 15:00 Ondansetron HCl (Zofran Inj) 4 mg Q6H PRN IV NAUSEA/VOMITING; Start 12/18/18 at 15:00 Acetaminophen (Tylenol Tab) 650 mg Q6H PRN PO .PAIN 1-3 OR TEMP; Start 12/18/18 at 15:00 Zolpidem Tartrate (Ambien) 5 mg QHS PRN PO .INSOMNIA; Start 12/18/18 at 15:00 Ceftriaxone Sodium 50 ml @ 100 mls/hr Q24H IVPB Last administered on 12/20/18at 15:32; Admin Dose 100 MLS/HR; Start 12/18/18 at 15:30 Sodium Chloride 1,000 ml @ 70 mls/hr [id number] IV Last administered on 12/20/18at 21:06; Admin Dose 70 MLS/HR; Start 12/18/18 at 15:30 Docusate Sodium (Colace) 100 mg BID PRN PO CONSTIPATION; Start 12/19/18 at 19:30 Polyethylene Glycol (Miralax) 17 gm DAILY PRN PO CONSTIPATION; Start 12/19/18 at 19:30 Ferric Sodium Gluconate Complex 125 mg/Sodium Chloride 110 ml @ 110 mls/hr DAILY@1300 IVPB ; Start 12/21/18 at 13:00; Stop 12/25/18 at 13:59 Clotrimazole (Clotrim 1% Vaginal Cr) 1 applic HS VAG Last administered on 12/20/18at 20:47; Admin Dose 1 APPLIC; Start 12/20/18 at 21:00 PITO COBURN MD Dec 21, 2018 09:34
--- NOTE | 2018-12-21 09:37 | CONS ---
Assessment/Plan Assessment/Plan Hospital Course (Demo Recall) 1. Severe anemia. microcytic w-UP IN PROGRESS Could be secondary to menstrual bleeding. The patient has history of fibroids. Patient denies any hematuria, any hematemesis and melena. GI eval SICKLE CELL SCREEN - P 2. Bilateral flank pain, more on the right. Need to rule out pyelonephritis versus kidney stone. now hs 6mm stones on ct scan 3. History of urinary tract infection. 4. Obesity. 5. Dyspnea, likely secondary to anemia. 6 Possible gall stones Consultation Date/Type/Reason Admit Date/Time Dec 20, 2018 at 14:37 Initial Consult Date 12/19/18 Requesting Provider: ADAM BULLARD MD Date/Time of Note DATE: 12/21/18 TIME: 09:36 Exam/Review of Systems Exam Vitals Vital Signs Date Temp Pulse Resp B/P (MAP) Pulse Ox O2 O2 Flow FiO2 Time Delivery Rate 12/21/18 98.6 63 18 98/51 (67) 99 Room Air 08:14 Intake and Output 12/20/18 12/20/18 12/21/18 1515:00 23:00 07:00 IntakeIntake Total 2050 ml 1560 ml OutputOutput Total 400 ml 500 ml BalanceBalance -400 ml 2050 ml 1060 ml Results Result Diagram: 12/21/18 0545 12/20/18 0552 Results 24hrs Laboratory Tests Test 12/20/18 17:33 12/20/18 17:34 12/21/18 05:45 Sickle Cells NEGATIVE Erythrocyte Sedimentation Rate 40 H Haptoglobin 188 Uric Acid 4.6 Erythropoietin Pending Ferritin 11.8 Lactate Dehydrogenase 332 Total Protein (PEP) 6.6 Albumin (PEP) Pending Essxr-[id number]-Udxpkmljf Pending Ovqgu-9-Fhrtmnjal Pending Beta Globulins Pending Gamma Globulins Pending Protein Electrophoresis Interpret Pending Carcinoembryonic Antigen 1.7 25-Hydroxy Vitamin D Total Pending 25-Hydroxy Vitamin D2 Pending 25-Hydroxy Vitamin D3 Pending Thyroid Stimulating Hormone (TSH) 4.060 White Blood Count 10.0 Red Blood Count 4.28 Hemoglobin 8.2 L Hematocrit 30.0 L Mean Corpuscular Volume 70.1 L Mean Corpuscular Hemoglobin 19.2 L Mean Corpuscular Hemoglobin Concent 27.3 L Red Cell Distribution Width 27.9 H Platelet Count 313 Mean Platelet Volume 9.9 Immature Granulocytes % 0.600 H Neutrophils % 72.1 Lymphocytes % 17.3 Monocytes % 7.5 Eosinophils % 2.0 Basophils % 0.5 Nucleated Red Blood Cells % 0.0 Immature Granulocytes # 0.060 H Neutrophils # 7.2 Lymphocytes # 1.7 Monocytes # 0.8 Eosinophils # 0.2 Basophils # 0.1 Nucleated Red Blood Cells # 0.0 Medications Medication Current Medications IV Flush (NS 3 ml) 3 ml PER PROTOCOL IV ; Start 12/18/18 at 15:00 Ondansetron HCl (Zofran Inj) 4 mg Q6H PRN IV NAUSEA/VOMITING; Start 12/18/18 at 15:00 Acetaminophen (Tylenol Tab) 650 mg Q6H PRN PO .PAIN 1-3 OR TEMP; Start 12/18/18 at 15:00 Zolpidem Tartrate (Ambien) 5 mg QHS PRN PO .INSOMNIA; Start 12/18/18 at 15:00 Ceftriaxone Sodium 50 ml @ 100 mls/hr Q24H IVPB Last administered on 12/20/18at 15:32; Admin Dose 100 MLS/HR; Start 12/18/18 at 15:30 Sodium Chloride 1,000 ml @ 70 mls/hr [id number] IV Last administered on 12/20/18at 21:06; Admin Dose 70 MLS/HR; Start 12/18/18 at 15:30 Docusate Sodium (Colace) 100 mg BID PRN PO CONSTIPATION; Start 12/19/18 at 19:30 Polyethylene Glycol (Miralax) 17 gm DAILY PRN PO CONSTIPATION; Start 12/19/18 at 19:30 Ferric Sodium Gluconate Complex 125 mg/Sodium Chloride 110 ml @ 110 mls/hr DAILY@1300 IVPB ; Start 12/21/18 at 13:00; Stop 12/25/18 at 13:59 Clotrimazole (Clotrim 1% Vaginal Cr) 1 applic HS VAG Last administered on 12/20/18at 20:47; Admin Dose 1 APPLIC; Start 12/20/18 at 21:00 PITO COBURN MD Dec 21, 2018 09:37
[2018-12-21] MEDS: SOD CHLORIDE 0.9% 1,000 ML IV SCH (12:48)
[2018-12-21] MEDS ORDERED: SOD FERRIC GLUC COMPLX 125 MG in SOD CHLORIDE 0.9% 100 ML IVPB SCH (13:00)
--- NOTE | 2018-12-21 15:34 | PDOCDIS ---
Discharge Instructions DIAGNOSIS Discharge Diagnosis Anemia UTI kidney stones CONDITION [id number] Patient Condition: [id number] Fair HOME CARE INSTRUCTIONS: [id number] Diet Instructions: [id number] Regular ACTIVITY: [id number] Activity Restrictions: [id number] Slowly Increase Activity Rest between Activity Avoid heavy lifting FOLLOW UP/APPOINTMENTS Follow-up Plan fu PCP in 1-2 weeks fu gynaecology as opd in 2-3 weeks fu Urology in 2-[address] SCHULZ IN 2-3 WEEKS ADAM BULLARD MD Dec 21, 2018 15:34
[2018-12-21 15:35] VITALS: BP 117/59; PULSE 70; RESP 20
[2018-12-21] MEDS: CEFTRIAXONE 1 GM/50 ML (PMX) 50 ML IVPB SCH (15:40)
--- NOTE | 2018-12-22 06:36 | DS ---
DATE OF ADMISSION: 12/20/2018 DATE OF DISCHARGE: 12/21/2018 HISTORY OF PRESENT ILLNESS AND HOSPITAL COURSE: This is a 43-year-old female with a past medical his tory of 2 months of right flank pain and dysuria. Initially seen at an outside clinic, noted to have microcytic anemia, hemoglobin of 6.4, diagnosed with pyelonephritis and was transferred. She was ta [facility] outside at home. She was transferred from [facility] due to insurance reasons. There, patient had temperature of 37.4, heart rate 99, blood pressure 117/59. The patient had an ultrasound there that showed no evidence of hydro or renal stones and was continued on Bactrim and was transfer red. The patient received 2 units of blood there. A repeat hemoglobin here had been in 9.1 to 8.5 r marquis. The patient's iron panel was checked that showed percent saturation 6, iron 24, TIBC 4, vitami n B12 within normal limit, folic acid 7.5. Sickle cell screen was checked which was negative[facility] to get their recommendations and their recommendations were followed. Initial UA had showed 20 WBCs and 212 RBCs. The patient also had a CT of the abdomen and pelvis that showed nonobstructive bilateral nephrolithiasis without hydronephrosis and fibroid uterus, cholelith iasis versus sludge and mildly distended gallbladder. The patient also had right upper abdominal ult rasound which was negative for gallstone. The patient also had abdominal x-ray, was seen by Dr. Neetu clifford for urology consultation that was unremarkable. The patient was feeling much better. The pain i n the back had improved. The patient's urine culture was positive for Anh and was treated with c lotrimazole vaginal cream and felt better. Blood cultures and urine cultures were negative. The pat ient was symptomatically feeling better and was stable to be discharged home. FINAL DISCHARGE DIAGNOSES: 1. Severe anemia, microcytic, could be secondary to menstrual bleeding, has a history of fibroids. The patient denies any hematemesis, any melena. Sickle cell screen was negative. The patient will f ollow up with hematology as an outpatient. Will be going home on iron. 2. Bilateral flank pain could be secondary to kidney stones, had resolved, [address] scan. 3. History of urinary tract infection. Here, cultures were positive for Anh, status post treatm ent with clotrimazole vaginal cream. 4. Obesity. 5. Dyspnea secondary to anemia. DISCHARGE CONDITION: Stable. DISCHARGE DIET: Low fat diet. DISCHARGE MEDICATIONS: 1. Iron sulfate 325 p.o. b.i.d. with meals. 2. Colace p.r.n. constipation. DISCHARGE FOLLOWUP: The patient was instructed to follow up with PCP in 1 to 2 weeks, urology in 2 t o 3 weeks, gynecology 2 to 3 weeks for fibroid uterus and also hematology. The rest of the treatment depends on the patient's hospitalization course. Dictated By: ADAM LARA/PHILIPPE Conf#: [id number] DID#: [id number]
== END 2018-12-21 18:00 | disposition home or self-care (01) | DRG 812 ==
LOC: INTOOBSV 11:01 → PP2 11:01 → OBSVTOIN 12-20 14:37
PROVIDERS: ADMIT Internal Medicine; ATTEND Internal Medicine
DX: D50.9 Iron deficiency anemia, unspecified (principal); Z68.41 Body mass index [BMI] 40.0-44.9, adult; N20.1 Calculus of ureter; E66.01 Morbid (severe) obesity due to excess calories; D25.9 Leiomyoma of uterus, unspecified; B37.3 Candidiasis of vulva and vagina; K80.20 Calculus of gallbladder without cholecystitis without obstruction; K76.0 Fatty (change of) liver, not elsewhere classified; R30.0 Dysuria
CPT/HCPCS: 71045; 74018; 74176; 76705; 80048; 80053; 81001; 81003; 82270; 82306; 82378; 82607; 82668; 82728; 82746; 83010; 83540; 83615; 84155; 84165; 84443; 84560; 84703; 85025; 85045; 85651; 85660; 87081; 87086; 99217; G0378; A4310; J0696; J2916; J7030